=== PATIENT | male | born 1955 | race Caucasian/White ===

== ENCOUNTER 2016-11-01 10:58 | Day surgery (SDC) | payer OTHER ==
[~2016-11-01] VITALS: Ht 180.3 cm; Wt 78.5 kg
[2016-11-01 11:58] VITALS: Ht 180.3 cm; Wt 78.5 kg
[2016-11-01] MEDS ORDERED: SIMV10TA PO (12:18)
[2016-11-01] MEDS ORDERED: METF-730 PO (12:18)
[2016-11-01] MEDS ORDERED: LIDOCAINE 2% (SDV) 5 ML INJ ONE (13:08)
[2016-11-01] MEDS ORDERED: PROPOFOL 40 ML ONE (13:08)
[2016-11-01 13:10] VITALS: BP 111/68; PULSE 77; RESP 16
[2016-11-01] MEDS ORDERED: MIDAZOLAM 1 MG/ML 2 ML INJ ONE (13:16)
[2016-11-01] MEDS ORDERED: LIDOCAINE 4% SOLUTION 50 ML BTL ONE (13:16)
[2016-11-01] MEDS ORDERED: EPHEDrine SULFATE 50 MG/5 ML SYG ONE (13:48)
[2016-11-01 14:30] VITALS: BP 136/81; PULSE 82; RESP 14
--- NOTE | 2016-11-02 09:34 | GILP ---
DATE OF PROCEDURE: 11/01/2016 PREOPERATIVE DIAGNOSIS: Change in bowel habits. Right lower quadrant inguinal pain, right upper quadrant pain and rectal bleeding. PROCEDURE PERFORMED: Colonoscopy and biopsy. ANESTHESIA: Dr. Portillo. DESCRIPTION OF PROCEDURE: The patient was put in left lateral decubitus after obtaining informed consent, after EGD further sedation monitoring done. Rectal exam done. A small external hemorrhoid noted. Advanced Olympus video colonoscope all the way to cecum. Appendiceal opening and ileocecal valve identified. Cecum, ascending colon, transverse colon, normal. Sigmoid and descending colon, very few diverticula noted. In the rectum, a small polyp was noted. This was removed. It was only 2 mm. It was within the anorectal junction. By turnaround, grade 2 internal hemorrhoids noted. Upon removal of scope, the patient had no complications. Dr. John Street: I this his bleeding is from the hemorrhoids. I recommend him a high-fiber diet, and follow up as outpatient once and repeat colonoscopy probably in 5-10 years. Thank you. Dictated By: Sherwin Dinero MD /rocío/arturo /Document#: [id number] PETER
--- NOTE | 2016-11-04 06:50 | GILP ---
DATE OF PROCEDURE: PREOP DIAGNOSIS: 1. Ssiyu-stwiw-ynnguafc pain. 2. Right lower quadrant pain. 3. Change in bowel habits. PROCEDURE DONE: EGD biopsy. ANESTHESIA: [____] because of his cardiac history, diabetes, sleep apnea, stroke, and angina. POSTOP DIAGNOSES: 1. Mild esophagitis at the GE junction. 2. A 4-cm hiatus hernia, sliding-type. 3. Fundic gland in the body of the stomach. 4. Mild gastritis. Random biopsy done. DESCRIPTION OF PROCEDURE: The patient was put in left lateral decubitus position. After obtaining informed consent, he was sedated, monitored by the anesthesiologist. Very carefully, I advanced a Olympus video upper endoscope into the esophagus, stomach and duodenum. An examination showed mild esophagitis at about 36 cm and a 4-cm sliding hiatus hernia noted. In the stomach, there was some fundic glans and mild gastritis. These were biopsied on a random basis. Fundus was otherwise unremarkable. Pylorus was easily entered, duodenal bulb and postbulbar area, first and second part normal. Upon removal of the scope, the patient had no complications. PLAN: Await for biopsy report. Continue present medication. Will follow up in 2 weeks. We will also proceed with colonoscopy as planned. Dictated By: Sherwin Dinero MD /rocío/maira /Document#: [id number] ; DR. GATITO ABBOTT
== END 2016-11-01 13:56 | disposition home or self-care (01) ==
LOC: GIL 10:58
PROVIDERS: ATTEND Internal Medicine
DX: R19.4 Change in bowel habit (principal); K44.9 Diaphragmatic hernia without obstruction or gangrene; K29.70 Gastritis, unspecified, without bleeding; E11.9 Type 2 diabetes mellitus without complications; I25.10 Atherosclerotic heart disease of native coronary artery without angina pectoris
CPT/HCPCS: 43239; 82962; 88305; J2250; Z7610